=== PATIENT | male | born 1940 | race Caucasian/White ===

== ENCOUNTER 2019-04-01 23:38 | Inpatient (IN) ==
[2019-04-02 00:21] LABS: Basophils % 0.2 %; Eosinophils % 0.1 %; Hematocrit 40.5 % (37.5-50.1); Hemoglobin 13.4 g/dL (12.9-16.9); Immature Granulocytes % 0.4 % (0-4); Lymphocytes # 0.6 K/mcL (0.6-4.6); Lymphocytes % 6.6 %; Mean Corpuscular HGB Conc 33.1 g/dL (31.6-35.5); Mean Corpuscular Hemoglobin 31.3 pg (28.0-33.3); Mean Corpuscular Volume 94.6 fL (83.0-100.0); Mean Platelet Volume 9.5 fL (9.4-12.4); Monocytes # 0.7 K/mcL (0.0-1.3); Monocytes % 7.6 %; Neutrophils # 8.1 K/mcL (1.6-8.9); Platelet Count 345 K/mcL (140-400); Red Blood Count 4.28 M/mcL (4.19-5.50); Red Cell Distribution Width 13.9 % (11.5-14.5); Segmented Neutrophils % 85.1 %; White Blood Count 9.5 K/mcL (4.3-11.1)
[2019-04-02 00:35] LABS: BUN/Creatinine Ratio 16 (6-26); Blood Urea Nitrogen 14 mg/dL (8-23); Carbon Dioxide 21 mEq/L (23-29); Chloride 101 mEq/L (98-107); Potassium 3.6 mEq/L (3.5-5.1); Sodium 135 mEq/L (136-145); eGFR For African Americans > 60 (> 60)
[2019-04-02 00:36] LABS: Alanine Aminotransferase 8 Units/L (7-52); Albumin 3.3 g/dL (3.5-5.7); Alkaline Phosphatase 93 Units/L (34-104); Aspartate Amino Transferase 10 Units/L (13-39); Bilirubin,Total 0.6 mg/dL (0.3-1.0); Globulin 3.4 g/dL (2.4-3.5); Glucose 148 mg/dL (70-105); Osmolality,Calculated 283 (280-300); Total Protein 6.7 g/dL (6.4-8.9); Troponin I < 0.03 ng/mL (< 0.04); eGFR For Non-African Americans > 60 (> 60)
--- NOTE | 2019-04-02 00:40 | Emergency Department Note ---
Disposition Clinical Impression: Generalized weakness, Balanitis, Declining functional status Alzheimer's dementia Qualifiers: Alzheimer's disease onset: unspecified onset Dementia behavioral disturbance: without behavioral disturbance Qualified Code(s): G30.9 - Alzheimer's disease, unspecified; F02.80 - Dementia in other diseases classified elsewhere without behavioral disturbance Disposition: Still a Patient Referrals: Scott Grover MD [Primary Care Provider] - Time of Disposition: 00:41 General Adult HPI - General Chief complaint: ED Weakness Stated complaint: dehydration Time Seen by Provider: 04/01/19 23:43 Source: EMS Limitations: no limitations Nursing Notes Reviewed: Yes Vital Signs Reviewed: Yes - History of Present Illness Pain Scale: 0 - Related Data Home Medications Medication Instructions Recorded Confirmed Apixaban [Eliquis] 2.5 mg PO BID 08/01/18 12/21/18 Atorvastatin [Lipitor] 10 mg PO HS 08/01/18 12/21/18 Donepezil HCl [Aricept] 10 mg PO QPM 08/01/18 12/21/18 FLUoxetine HCl [Prozac] 20 mg PO DAILY 08/01/18 12/21/18 Ferrous Sulfate [Iron] 325 mg PO DAILY 08/01/18 12/21/18 Omeprazole [PriLOSEC] 40 mg PO DAILY 08/01/18 12/21/18 Oxybutynin Chloride [Ditropan Xl] 5 mg PO DAILY 08/01/18 12/21/18 Tamsulosin HCl [Flomax] 0.4 mg PO DAILY 08/01/18 12/21/18 Umeclidinium Brm/Vilanterol Tr 1 puff IH DAILY 08/01/18 12/21/18 [Anoro Ellipta 62.5-25 Mcg INH] Allergies Allergy/AdvReac Type Severity Reaction Status Date / Time No Known Allergies Allergy Verified 12/21/18 22:30 Past Medical History - Past Medical History Medical history: Reports: COPD, DVT, dementia, GERD, hyperlipidemia, other Surgical history: Reports: cholecystectomy Psychiatric history: Reports: depression - Social History Smoking Status: Current some day smoker Smokeless Tobacco Status: No Alcohol use: Reports: none Drug use: Reports: none Physical Exam - General Limitations: no limitations General appearance: alert, in no apparent distress Course Vital Signs Temperature 98.2 F 04/01/19 23:40 Pulse Rate 92 04/01/19 23:40 Respiratory Rate 20 04/01/19 23:40 Blood Pressure 101/65 04/01/19 23:40 O2 Sat by Pulse Oximetry 100 04/01/19 23:40 Temperature 98.2 F 04/01/19 23:40 Pulse Rate 92 04/01/19 23:40 Respiratory Rate 20 04/01/19 23:40 Blood Pressure 101/65 04/01/19 23:40 O2 Sat by Pulse Oximetry 100 04/01/19 23:40 Oxygen Delivery Oxygen Delivery Room Air Medical Decision Making - Lab Data Result diagrams: 04/01/19 23:59 04/01/19 23:59 Lab Results 04/01/19 04/01/19 Range/Units 23:59 23:59 WBC 9.5 (4.3-11.1) K/mcL RBC 4.28 (4.19-5.50) M/mcL Hgb 13.4 (12.9-16.9) g/dL Hct 40.5 (37.5-50.1) % MCV 94.6 (83.0-100.0) fL MCH 31.3 (28.0-33.3) pg MCHC 33.1 (31.6-35.5) g/dL RDW 13.9 (11.5-14.5) % Plt Count 345 (140-400) K/mcL MPV 9.5 (9.4-12.4) fL Immature Gran % 0.4 (0-4) % Seg Neutrophils % 85.1 % Lymphocytes % 6.6 % Monocytes % 7.6 % Eosinophils % 0.1 % Basophils % 0.2 % Neutrophils # 8.1 (1.6-8.9) K/mcL Lymphocytes # 0.6 (0.6-4.6) K/mcL Monocytes # 0.7 (0.0-1.3) K/mcL Eosinophils # 0.0 (0.0-0.6) K/mcL Basophils # 0.0 (0.0-0.2) K/mcL Sodium 135 L (136-145) mEq/L Potassium 3.6 (3.5-5.1) mEq/L Chloride 101 (98-107) mEq/L Carbon Dioxide 21 L (23-29) mEq/L BUN 14 (8-23) mg/dL Creatinine 0.90 (0.70-1.30) mg/dL Est GFR ( Amer) > 60 (> 60) Est GFR (Non-Af Amer) > 60 (> 60) BUN/Creatinine Ratio 16 (6-26) Glucose 148 H (70-105) mg/dL Calculated Osmolality 283 (280-300) Calcium 9.0 (8.6-10.3) mg/dL Total Bilirubin 0.6 (0.3-1.0) mg/dL AST 10 L (13-39) Units/L ALT 8 (7-52) Units/L Alkaline Phosphatase 93 (34-104) Units/L Troponin I < 0.03 (< 0.04) ng/mL Serum Total Protein 6.7 (6.4-8.9) g/dL Albumin 3.3 L (3.5-5.7) g/dL Globulin 3.4 (2.4-3.5) g/dL Albumin/Globulin Ratio 1.0 L (1.1-2.2) Attestation Statement - Attestation Attestation: I examined this patient and my medical decision-making was reviewed with the Resident Physician. I agree with the documented findings, disposition and treatment plan as described except to the extent set forth below. Patient to the ED with multiple complaints. He was sent in by his son who called 911. Patient's been having dizzy episodes. He is not eating. Losing w eight. Staying in bed all day. Now having difficulty ambulating. Son is concerned. He has no help at home. He does not want him to go to a residential, but he wants to get some help. Requesting admission. On exam he is awake alert and pleasantly confused. He is complaining of dizziness. Also complaining of pain in his buttock. He has erythema to bilateral buttocks. Ulceration of the scrotum and glans of his penis. He is noted to be cachectic. Plan. Patient had a functional decline home. Patient will likely need admitted to the hospital. He has significant skin breakdown on his buttock and genitals. Balanitis. CT head pending. Labs reviewed thus far. Patient will be signed out to night guard pending the rest of his workup and admission.
[2019-04-02 00:49] LABS: Bilirubin,Urine Small (Negative); Blood,Urine Small (Negative); Clarity,Urine Cloudy (Clear); Color,Urine Dark Yellow (Yellow); Glucose,Urine (UA) Normal (Normal); Ketones,Urine Negative (Negative); Leukocyte Esterase,Urine Moderate (Negative); Nitrite,Urine Positive (Negative); PH,Urine 5.5 pH Units (5.0-8.0); Protein,Urine 30 mg/dL (Neg-Trace); Specific Gravity,Urine 1.014 (1.010-1.025); Urobilinogen,Urine Normal (Normal)
[2019-04-02 00:51] LABS: Bacteria,Urine Many per hpf (None-Few); Squamous Epithelial Cell,Urine Moderate per lpf (None-Few); WBC,Urine TNTC per hpf (0-3)
--- NOTE | 2019-04-02 00:52 | Emergency Department Note ---
Disposition Clinical Impression: Generalized weakness, Balanitis, Declining functional status Alzheimer's dementia Qualifiers: Alzheimer's disease onset: unspecified onset Dementia behavioral disturbance: without behavioral disturbance Qualified Code(s): G30.9 - Alzheimer's disease, unspecified Disposition: Still a Patient Referrals: Scott Grover MD [Primary Care Provider] - Forms: ED Satisfaction Letter Time of Disposition: 01:00 General Adult HPI - General Chief complaint: ED Weakness Stated complaint: dehydration Time Seen by Provider: 04/01/19 23:43 Source: patient, EMS Mode of arrival: ambulatory Limitations: no limitations Nursing Notes Reviewed: Yes Vital Signs Reviewed: Yes - History of Present Illness HPI Narrative: Patient is a 78-year-old male with past medical history of COPD, GERD, HLD, and Alzheimer's dementia currently being taken care of by his family member at home. Patient is being brought in for generalized weakness started this morning and the family member feels that the patient becoming too difficult for him to take care of at home. The patient family member denying any focal neurological deficit. Denying any chest pain or shortness of breath. No recent illness. However states he does not have any support at home and that he is only when he is able to take care of him and he feels like it is becoming too much for them to handle is worried that his relative is not being fully taking care of at home however he does not want him to be put into a ECF. Pain Scale: 0 - Related Data Home Medications Medication Instructions Recorded Confirmed Apixaban [Eliquis] 2.5 mg PO BID 08/01/18 12/21/18 Atorvastatin [Lipitor] 10 mg PO HS 08/01/18 12/21/18 Donepezil HCl [Aricept] 10 mg PO QPM 08/01/18 12/21/18 FLUoxetine HCl [Prozac] 20 mg PO DAILY 08/01/18 12/21/18 Ferrous Sulfate [Iron] 325 mg PO DAILY 08/01/18 12/21/18 Omeprazole [PriLOSEC] 40 mg PO DAILY 08/01/18 12/21/18 Oxybutynin Chloride [Ditropan Xl] 5 mg PO DAILY 08/01/18 12/21/18 Tamsulosin HCl [Flomax] 0.4 mg PO DAILY 08/01/18 12/21/18 Umeclidinium Brm/Vilanterol Tr 1 puff IH DAILY 08/01/18 12/21/18 [Anoro Ellipta 62.5-25 Mcg INH] Allergies Allergy/AdvReac Type Severity Reaction Status Date / Time No Known Allergies Allergy Verified 12/21/18 22:30 All systems ED: reviewed and negative except as stated. Review of Systems: As Per HPI Constitutional: Reports: weakness. Denies: fever, chills Cardiovascular: Denies: chest pain, palpitations, dyspnea on exertion, edema, syncope Respiratory: Denies: cough, dyspnea, wheezes Gastrointestinal: Denies: abdominal pain, nausea, vomiting Past Medical History - Past Medical History Attestation: Yes The following information was validated with the patient. Medical history: Reports: COPD, DVT, dementia, GERD, hyperlipidemia, other Surgical history: Reports: cholecystectomy Psychiatric history: Reports: depression - Social History Smoking Status: Current some day smoker Smokeless Tobacco Status: No Alcohol use: Reports: none Drug use: Reports: none Physical Exam - General Limitations: no limitations General appearance: alert, in no apparent distress, cachectic - Head Head exam: atraumatic, normocephalic, normal inspection - Eye Eye exam: Present: normal appearance, PERRL, EOMI - ENT ENT exam: normal exam, normal oropharynx, mucous membranes moist - Neck Neck exam: Present: normal inspection, full ROM, trachea midline - Chest Chest inspection: Present: normal inspection, symmetric chest wall rise - Respiratory Respiratory exam: Present: normal lung sounds bilaterally. Absent: respiratory distress, wheezes - Cardiovascular Cardiovascular exam: Present: regular rate, normal rhythm, normal heart sounds, +S1, +S2 - Abdominal Exam Abdominal exam: Present: soft, Non-Tender. Absent: tenderness, distention, guarding, rebound, rigidity - Extremities Exam Extremities exam: Present: normal inspection, full ROM, normal capillary refill. Absent: tenderness, pedal edema - Back Exam Back exam: Present: normal inspection, full ROM. Absent: tenderness, CVA tenderness (R), CVA tenderness (L) - Neurological Exam Neurological exam: Present: alert. Absent: motor sensory deficit - Psychiatric Psychiatric exam: Present: normal affect, normal mood - Skin Skin exam: Present: warm, other (Patient has skin breakdown involving the buttock region with a superficial area of breakdown of the skin that is erythematous and red and he also has breakdown of the scrotum as well as the head of the penis to the point where the urethral opening of the penis is almost healed shut ) Course Course Narrative: Patient presents for evaluation of weakness has been getting worse appointment with a family member who is his outer diameter grinder tool is having difficult time taking care of him at home alone. On exam the patient has fecal matter that appears to be dried to his buttock's in his upper back. Family member states that the patient just took a shower at home but appears that the patient may not be capable of providing himself and adequate shower given his skin breakdown involving his scrotum and his buttock's. There is no abscess or drainage and are not concerned for Joslyn's gangrene. I am concerned for the patient's current condition and the family's ability to take care of them on their own I think that he would benefit from admission to hospital until he can establish proper home health care such as a home nurse that is able to stop alcohol to help with bathing the patient. He will undergo workup for his weakness will be admitted to the hospital he will need to be signed out to the night team due to pending labs. Vital Signs Temperature 98.2 F 04/01/19 23:40 Pulse Rate 92 04/01/19 23:40 Respiratory Rate 20 04/01/19 23:40 Blood Pressure 101/65 04/01/19 23:40 O2 Sat by Pulse Oximetry 100 04/01/19 23:40 Temperature 98.2 F 04/01/19 23:40 Pulse Rate 92 04/01/19 23:40 Respiratory Rate 20 04/01/19 23:40 Blood Pressure 101/65 04/01/19 23:40 O2 Sat by Pulse Oximetry 100 04/01/19 23:40 Oxygen Delivery Oxygen Delivery Room Air Medical Decision Making - Medical Records Medical records reviewed: Yes I reviewed the patient's medical records. - Lab Data Lab results reviewed: Yes I reviewed the patient's lab results. Result diagrams: 04/01/19 23:59 04/01/19 23:59 Lab Results 04/01/19 04/01/19 04/02/19 Range/Units 23:59 23:59 00:33 WBC 9.5 (4.3-11.1) K/mcL RBC 4.28 (4.19-5.50) M/mcL Hgb 13.4 (12.9-16.9) g/dL Hct 40.5 (37.5-50.1) % MCV 94.6 (83.0-100.0) fL MCH 31.3 (28.0-33.3) pg MCHC 33.1 (31.6-35.5) g/dL RDW 13.9 (11.5-14.5) % Plt Count 345 (140-400) K/mcL MPV 9.5 (9.4-12.4) fL Immature Gran % 0.4 (0-4) % Seg Neutrophils % 85.1 % Lymphocytes % 6.6 % Monocytes % 7.6 % Eosinophils % 0.1 % Basophils % 0.2 % Neutrophils # 8.1 (1.6-8.9) K/mcL Lymphocytes # 0.6 (0.6-4.6) K/mcL Monocytes # 0.7 (0.0-1.3) K/mcL Eosinophils # 0.0 (0.0-0.6) K/mcL Basophils # 0.0 (0.0-0.2) K/mcL Sodium 135 L (136-145) mEq/L Potassium 3.6 (3.5-5.1) mEq/L Chloride 101 (98-107) mEq/L Carbon Dioxide 21 L (23-29) mEq/L BUN 14 (8-23) mg/dL Creatinine 0.90 (0.70-1.30) mg/dL Est GFR ( Amer) > 60 (> 60) Est GFR (Non-Af Amer) > 60 (> 60) BUN/Creatinine Ratio 16 (6-26) Glucose 148 H (70-105) mg/dL Calculated Osmolality 283 (280-300) Calcium 9.0 (8.6-10.3) mg/dL Total Bilirubin 0.6 (0.3-1.0) mg/dL AST 10 L (13-39) Units/L ALT 8 (7-52) Units/L Alkaline Phosphatase 93 (34-104) Units/L Troponin I < 0.03 (< 0.04) ng/mL Serum Total Protein 6.7 (6.4-8.9) g/dL Albumin 3.3 L (3.5-5.7) g/dL Globulin 3.4 (2.4-3.5) g/dL Albumin/Globulin Ratio 1.0 L (1.1-2.2) Urine Color Dark Yellow (Yellow) Urine Clarity Cloudy A (Clear) Urine pH 5.5 (5.0-8.0) pH Units Ur Specific [place] 1.014 (1.010-1.025) Urine Protein 30 H (Neg-Trace) mg/dL Urine Glucose (UA) Normal (Normal) mg/dL Urine Ketones Negative (Negative) mg/dL Urine Blood Small H (Negative) Urine Nitrite Positive A (Negative) Urine Bilirubin Small H (Negative) Urine Urobilinogen Normal (Normal) mg/dL Ur Leukocyte Esterase Moderate H (Negative) - EKG Data EKG #1 EKG attestation: Yes I reviewed and interpreted this EKG. EKG results narrative: EKG done at 23:49 so sinus rhythm at a rate of 98 bpm. Normal axis. Intervals within normal limits. No signs of ST elevation, ST depression or Q waves present. Patient does have abnormal. Nichole wave appearing finding in his inferior leads however this is unchanged from EKG in December 2018. He does have a widened QRS as well which is a right bundle branch block which appears to be old. [place] - Ol[place]a Situation: Demographics, MOA Background: Presenting Complaint, Relevant PMH, Meds, & Allergies Assessment: Vital Signs, Course and respsone to treatment, Exam Concerns, Patient/Family Expectation, Pertinant Lab Results, Outstanding Labs Recommendation: Barrier(s) to disposition, Recommendation based on pending studies, treatments, or consults SNormaBJanes Report Given to: katalina Bhagat Repor Time: 00:57
[2019-04-02] MEDS ORDERED: Sulfamethoxazole/Trimeth DS 1 EACH TABLET PO ONE (00:56)
[2019-04-02 01:00] LABS: Hyaline Casts,Urine Moderate per lpf (None-Few); Mucus,Urine Moderate (Few)
[2019-04-02] MEDS ORDERED: Acetaminophen 325 MG TABLET PO PRN (04:06)
[2019-04-02] MEDS ORDERED: Naloxone 0.4 MG/ML INJ IVP PRN (04:06)
[2019-04-02] MEDS ORDERED: Ondansetron 4 MG/2 ML VIAL IVP PRN (04:06)
[2019-04-02] MEDS ORDERED: 0.9 % Sodium Chloride w KCl 20 MEQ/1,000 ML MLS IVC SCH (04:15)
--- NOTE | 2019-04-02 04:19 | Internal Med History&Physical ---
Date of Encounter: 04/02/19 Time of Encounter: 04:14 Internal Medicine - H&P: HPI Chief complaint: FTT Admitted From: Emergency Dept Plans for Post Hospital Care: Home History of present illness: Mr. Livingston is a 78 year old male who presents to the ER tonight per EMS by the request of his son. Patient has not been able to care for himself and has not been able to attend to ADLs, feed himself, clean himself, and/or bathe himself. He has been losing weight and getting dehydrated. He was therefore sent to the ER. Workup in ER revealed patient to have significant UTI, malnutrition, dehydration, and redness and excoriation to his perineum. Patient reportedly suffers from Alzheimer's dementia and has been steadily declining. He was therefore admitted to hospitalist service for ongoing treatment and workup and further assessment of his capabilities. Upon my assessment of the patient, patient is pleasantly confused and offers no history. There are no family members present at the bedside. All history is obtained from limited old records and ER records. Furthermore, I obtained history from patient's primary nurse in the ER. Reportedly, patient was living with his until his several months ago. Patient then moved in with his son recently who, unfortunately, is no longer able to care for the patient. No further history is available at this time. Past Med Surg Social Fam HX - Past Medical History Source: old records reviewed, nursing notes reviewed, other (ER records) Medical history: COPD, DVT, dementia, GERD, hyperlipidemia, other Psychiatric history: depression - Past Surgical History Surgical History: cholecystectomy Additional surgical history: Gall bladder surgery - Social History Smoking Status: Current some day smoker Smokeless Tobacco Status: No Alcohol use: none Drug use: none Current living situation: Home, With Family Activity Level: Mostly sedentary - Family History Father Living Status: Mother Living Status: Hx Family Cardiac Disorders: Yes Brother Family Member Ethnicity: Non- Living Status: Hx Family Cancer: Yes (Type unknown) Sister Family Member Ethnicity: Non- Living Status: Hx Family Cancer: Yes (Type unknown) Internal Medicine - H&P: Meds Apixaban [Eliquis] 2.5 mg PO BID 08/01/18 [History] Atorvastatin [Lipitor] 10 mg PO HS 08/01/18 [History] Donepezil HCl [Aricept] 10 mg PO QPM 08/01/18 [History] FLUoxetine HCl [Prozac] 20 mg PO DAILY 08/01/18 [History] Ferrous Sulfate [Iron] 325 mg PO DAILY 08/01/18 [History] Omeprazole [PriLOSEC] 40 mg PO DAILY 08/01/18 [History] Oxybutynin Chloride [Ditropan Xl] 5 mg PO DAILY 08/01/18 [History] Tamsulosin HCl [Flomax] 0.4 mg PO DAILY 08/01/18 [History] Umeclidinium Brm/Vilanterol Tr [Anoro Ellipta 62.5-25 Mcg INH] 1 puff IH DAILY 08/01/18 [History] Allergy/AdvReac Type Severity Reaction Status Date / Time No Known Allergies Allergy Verified 12/21/18 22:30 ROS unobtainable: due to mental status - Constitutional Vitals: Temp Pulse Resp BP Pulse Ox 98.2 F 87 18 107/69 100 04/01/19 23:40 04/02/19 01:11 04/02/19 01:11 04/02/19 01:11 04/02/19 01:11 General appearance: Present: cachectic, A&O X 0, cooperative, pleasant. Absent: answers questions appropriately Exam: appears dry, cachectic, weak, frail, confused - Head Head exam: Present: atraumatic, normal inspection - Eye Eye exam: Present: EOMI, PERRL. Absent: scleral icterus Pupils: Present: normal accommodation - ENT ENT exam: Present: mucous membranes dry, normal exam, normal oropharynx - Neck Neck exam general surgery: Present: full ROM, supple, trachea midline. Absent: lymphadenopathy, tenderness, nuchal rigidity, thyromegaly - Respiratory Respiratory exam: Present: prolonged expiratory phase, wheezes (rare, scattered). Absent: accessory muscle use, chest wall tenderness, rales, respiratory distress, rhonchi, tachypnea - Cardiovascular Cardiovascular exam: Present: distant heart sounds, RRR, +S1, +S2. Absent: diastolic murmur, systolic murmur - GI/Abdominal GI/Abdominal exam: Present: normal bowel sounds, soft. Absent: guarding, hepatomegaly, mass, rebound, splenomegaly, tenderness Additional comments: soft, scaphoid - External exam: Present: erythema Additional comments: red, excoriated fungal type rash along perineum - Extremities Exam Extremities exam: Present: full ROM, normal capillary refill, warm, radial pulses palpable and symmetrical. Absent: calf tenderness, joint swelling, pedal edema, tenderness Additional comments: muscle atrophy/wasting - Back Exam Back exam: Absent: CVA tenderness (L), CVA tenderness (R) - Neurological Exam Neurological exam: Present: alert, CN II-XII intact, no focal deficits, strengths equal and symetr throughout. Absent: oriented X3 - Psychiatric Psychiatric exam: Present: flat affect - Skin Skin exam: Present: dry, intact, warm Internal Med - H&P Results - Labs CBC & Chem 7: 04/01/19 23:59 04/01/19 23:59 Labs: Short CBC 04/01/19 Range/Units 23:59 WBC 9.5 (4.3-11.1) K/mcL Hgb 13.4 (12.9-16.9) g/dL Hct 40.5 (37.5-50.1) % Plt Count 345 (140-400) K/mcL Neutrophils # 8.1 (1.6-8.9) K/mcL BMP 04/01/19 23:59 Sodium 135 L Potassium 3.6 Chloride 101 Carbon Dioxide 21 L BUN 14 Creatinine 0.90 Glucose 148 H Calcium 9.0 Cardiac Enzymes 04/01/19 Range/Units 23:59 Troponin I < 0.03 (< 0.04) ng/mL Liver Function 04/01/19 Range/Units 23:59 Total Bilirubin 0.6 (0.3-1.0) mg/dL AST 10 L (13-39) Units/L ALT 8 (7-52) Units/L Alkaline Phosphatase 93 (34-104) Units/L Albumin 3.3 L (3.5-5.7) g/dL Urine 04/02/19 Range/Units 00:33 Urine Color Dark Yellow (Yellow) Urine Clarity Cloudy A (Clear) Urine pH 5.5 (5.0-8.0) pH Units Ur Specific [place] 1.014 (1.010-1.025) Urine Protein 30 H (Neg-Trace) mg/dL Urine Glucose (UA) Normal (Normal) mg/dL - Impressions ITS Impressions Chest X-Ray 04/02/19 00:01 IMPRESSION: No evidence of acute cardiopulmonary disease. Hyperinflation again noted suggestive of COPD. D/ / Best Enriquez MD / Best Enriquez MD Interpreting Provider: Best Enriquez MD Head CT 04/02/19 00:13 IMPRESSION: No CT evidence of an acute infarct. D/ / Manuel Orantes MD / Manuel Orantes MD Interpreting Provider: Manuel Orantes MD - Diagnostic Studies Chest x-ray Status: image reviewed by me (negative) - Assessment and Plan (1) UTI (urinary tract infection) Current Visit: Yes Status: Acute Assessment and plan: 1. Urine culture obtained in ER. 2. Will treat with IVF and Rocephin. 3. Follow cultures and adjust antibiotics accordingly. Qualifiers: Urinary tract infection type: acute cystitis Hematuria presence: with hematuria Qualified Code(s): N30.01 - Acute cystitis with hematuria (2) Alzheimer's dementia Current Visit: Yes Status: Chronic Assessment and plan: 1. Continue Aricept. 2. Consult environmental services specialist for D/C planning. 3. Patient pleasantly confused -- unsure if this is baseline. Need family presence to assist in further evaluation/comparison. Qualifiers: Alzheimer's disease onset: unspecified onset Dementia behavioral disturbance: without behavioral disturbance Qualified Code(s): G30.9 - Alzheimer's disease, unspecified; F02.80 - Dementia in other diseases classified elsewhere without behavioral disturbance (3) Failure to thrive in adult Current Visit: Yes Status: Acute Assessment and plan: 1. IVF hydration. 2. Will need PT/OT evaluations, nutrition consult, social service consult, possibly psychiatry consult. (4) DVT prophylaxis Current Visit: Yes Status: Acute Assessment and plan: 1. Continue home dose of Eliquis.
[2019-04-02] MEDS: Ketoconazole 2% CRM 15 GM TUBE TP SCH ×2 (05:31→20:20)
--- NOTE | 2019-04-02 07:23 | Event Note ---
Date of Encounter: 04/02/19 Time of Encounter: 09:50 Mr Livingston is a 78 yo m pmhx COPD, Dementia, DVT on AC, Depression whom lives with his son and presented with malnutrition, inability to complete ADLs and possible dehydration. He is being observed for UTI and failure to thrive awake, no family present. He is pleasantly confused but oriented to person and place. He denies any bladder pain, back pain, dysuria, fevers or chills. He ate breakfast without issue but says it was cold. Re oriented him to bladder infection and treatment plan. Discussed with RN whom will update family should they visit today. gen- alert, awake,appears stated age eyes- pupils equal round cv- reg rate and rhythm, normal s1,s2, no le edema lungs- ctabl, no wheezing, rhonchi or crackles, normal resp effort on room air abd- soft, non tender, non distended, + bs neuro- AAOx person place, not date, year or siltation, CN are grossly intact, he moves all ext without deficit in strength Suspected UTI -cont rocephin, Ucx pending Dementia- cont donepezil Failure to Thrive- nutrition consult, pt/ot/sw assistance Presumed BPH- cont edmundo eflomax Depression- cont home fluoxetine DVT- cont home Eliquis COPD,s table- cont home inhaler vte ppx eliquis
[2019-04-02] MEDS ORDERED: 0.9 % Sodium Chloride 1,000 ML IVC SCH (07:30)
[2019-04-02] MEDS ORDERED: Fluconazole 100 MG TABLET PO SCH (09:00)
[2019-04-02] MEDS: cefTRIAXone 1,000 MG in Water for inj. (sterile) 10 ML IVP SCH (09:03)
[2019-04-02] MEDS: Apixaban 2.5 MG TABLET PO SCH ×2 (09:04→20:03)
[2019-04-02] MEDS: Gabapentin 100 MG CAPSULE PO SCH (20:03)
[2019-04-02] MEDS ORDERED: Gabapentin 100 MG CAPSULE PO SCH (21:00)
[2019-04-03 03:26] LABS: BUN/Creatinine Ratio 14 (6-26); Blood Urea Nitrogen 12 mg/dL (8-23); Calcium 8.5 mg/dL (8.6-10.3); Carbon Dioxide 24 mEq/L (23-29); Chloride 106 mEq/L (98-107); Glucose 98 mg/dL (70-105); Osmolality,Calculated 284 (280-300); Potassium 3.9 mEq/L (3.5-5.1); Sodium 137 mEq/L (136-145); eGFR For African Americans > 60 (> 60); eGFR For Non-African Americans > 60 (> 60)
--- NOTE | 2019-04-03 07:18 | Internal Med Progress Note ---
Hospitalist Progress Note - Encounter Date of Encounter: 04/03/19 Time of Encounter: 08:00 - Subjective Interval History: awake, eating breakfast, no family present, pleasantly confused. He denies pain, abd pain, dysuria, fever or chills. he has no concerns. - Exam Vitals: Temp Pulse Resp BP Pulse Ox 98.0 F 72 16 127/68 97 04/03/19 07:00 04/03/19 07:00 04/03/19 07:00 04/03/19 07:00 04/03/19 07:00 Exam: gen- alert, awake,appears stated age cv- reg rate and rhythm, normal s1,s2, no le edema lungs- ctabl, normal resp effort on room air abd- soft, non tender, non distended, + bs neuro- AAOx person place, not date, year or siltation, CN are grossly intact, he moves all ext without deficit - Assessment and Plan (1) UTI (urinary tract infection) Current Visit: Yes Status: Acute (2) Failure to thrive in adult Current Visit: Yes Status: Acute (3) Alzheimer's dementia Current Visit: Yes Status: Chronic - Summary of Assessment and Plan Summary of Assessment and Plan: Mr Livingston is a 78 yo m pmhx COPD, Dementia, DVT on AC, Depression whom lives with his son and presented with malnutrition, inability to complete ADLs and possible dehydration. He is being observed for UTI and failure to thrive Suspected UTI -cont rocephin, Ucx pending Dementia- cont donepezil and namenda Failure to Thrive- nutrition consult, pt/ot/sw assistance Presumed BPH- cont home flomax Depression- cont home fluoxetine DVT- cont home Eliquis COPD,stable- cont home inhaler HLD- cont hoome statin vte ppx eliquis Internal Medicine: Result - Labs CBC & Chem 7: 04/01/19 23:59 04/03/19 02:32 Labs: BMP 04/03/19 02:32 Sodium 137 Potassium 3.9 Chloride 106 Carbon Dioxide 24 BUN 12 Creatinine 0.88 Glucose 98 Calcium 8.5 L Consult Discharge Plan - Plan Referrals: Scott Grover MD [Primary Care Provider] - (1) UTI (urinary tract infection) Qualifiers: Urinary tract infection type: acute cystitis Hematuria presence: with hematuria Qualified Code(s): N30.01 - Acute cystitis with hematuria (3) Alzheimer's dementia Qualifiers: Alzheimer's disease onset: unspecified onset Dementia behavioral disturbance: without behavioral disturbance Qualified Code(s): G30.9 - Alzheimer's disease, unspecified; F02.80 - Dementia in other diseases classified elsewhere without behavioral disturbance
[2019-04-03] MEDS: FLUoxetine 20 MG CAPSULE PO SCH (08:33)
[2019-04-03] MEDS: Gabapentin 100 MG CAPSULE PO SCH ×2 (08:34→21:33)
[2019-04-03] MEDS: Magnesium Oxide 400 MG TABLET PO SCH (08:34)
[2019-04-03] MEDS: cefTRIAXone 1,000 MG in Water for inj. (sterile) 10 ML IVP SCH (08:34)
[2019-04-03] MEDS: Apixaban 2.5 MG TABLET PO SCH ×2 (08:34→21:32)
[2019-04-03] MEDS: Ketoconazole 2% CRM 15 GM TUBE TP SCH ×2 (09:00→21:35)
--- NOTE | 2019-04-03 16:01 | Electrocardiograph Report ---
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
--- NOTE | 2019-04-04 07:13 | Internal Med Progress Note ---
Hospitalist Progress Note - Encounter Date of Encounter: 04/04/19 Time of Encounter: 08:15 - Subjective Interval History: resting in bed, rn at bedside, he denies pain, bladder pain, f/c, n/v. pleasantly confused, tired today - Exam Vitals: Temp Pulse Resp BP Pulse Ox 98.3 F 64 16 145/61 97 04/04/19 05:15 04/04/19 05:15 04/04/19 05:15 04/04/19 05:15 04/04/19 05:15 Exam: gen- alert, awake,appears stated age cv- reg rate and rhythm, normal s1,s2, lungs- ctabl, normal resp effort on room air abd- soft, non tender, non distended, + bs neuro- AAOx person place, not date, year or siltation, CN are grossly intact, he moves all ext without deficit - Assessment and Plan (1) UTI (urinary tract infection) Current Visit: Yes Status: Acute (2) Failure to thrive in adult Current Visit: Yes Status: Acute (3) Alzheimer's dementia Current Visit: Yes Status: Chronic - Summary of Assessment and Plan Summary of Assessment and Plan: Mr Livingston is a 78 yo m pmhx COPD, Dementia, DVT on AC, Depression whom lives with his son and presented with malnutrition, inability to complete ADLs and possible dehydration. He is being observed for UTI and failure to thrive E Coli + Proteus UTI -cont rocephin as both are sensitive to this medication, day 3 abx treatment today -suspect will finish abx course while inpt awaiting SNF placement Dementia- cont donepezil and namenda Failure to Thrive- nutrition consult, pt/ot/sw assistance Presumed BPH- cont home flomax Depression- cont home fluoxetine DVT- cont home Eliquis COPD,stable- cont home inhaler HLD- cont hoome statin vte ppx eliquis dispo- will be to snf when arranged Internal Medicine: Result - Labs CBC & Chem 7: 04/01/19 23:59 04/03/19 02:32 Consult Discharge Plan - Plan Referrals: Scott Grover MD [Primary Care Provider] - (1) UTI (urinary tract infection) Qualifiers: Urinary tract infection type: acute cystitis Hematuria presence: without hematuria Qualified Code(s): N30.00 - Acute cystitis without hematuria (3) Alzheimer's dementia Qualifiers: Alzheimer's disease onset: unspecified onset Dementia behavioral disturbance: without behavioral disturbance Qualified Code(s): G30.9 - Alzheimer's disease, unspecified; F02.80 - Dementia in other diseases classified elsewhere without behavioral disturbance
[2019-04-04] MEDS: FLUoxetine 20 MG CAPSULE PO SCH (08:26)
[2019-04-04] MEDS: Magnesium Oxide 400 MG TABLET PO SCH (08:26)
[2019-04-04] MEDS: Apixaban 2.5 MG TABLET PO SCH ×2 (08:26→19:53)
[2019-04-04] MEDS: cefTRIAXone 1,000 MG in Water for inj. (sterile) 10 ML IVP SCH (08:27)
[2019-04-04] MEDS: Gabapentin 100 MG CAPSULE PO SCH ×2 (08:27→19:53)
[2019-04-04] MEDS: Ketoconazole 2% CRM 15 GM TUBE TP SCH ×2 (08:37→19:54)
[2019-04-05] MEDS: Apixaban 2.5 MG TABLET PO SCH ×2 (08:48→20:34)
[2019-04-05] MEDS: Magnesium Oxide 400 MG TABLET PO SCH (08:48)
[2019-04-05] MEDS: Gabapentin 100 MG CAPSULE PO SCH ×2 (08:49→20:33)
[2019-04-05] MEDS: FLUoxetine 20 MG CAPSULE PO SCH (08:49)
[2019-04-05] MEDS: cefTRIAXone 1,000 MG in Water for inj. (sterile) 10 ML IVP SCH (08:50)
[2019-04-05] MEDS: Ketoconazole 2% CRM 15 GM TUBE TP SCH ×2 (09:18→20:38)
--- NOTE | 2019-04-05 18:42 | Internal Med Progress Note ---
Hospitalist Progress Note - Encounter Date of Encounter: 04/05/19 Time of Encounter: 08:00 - Subjective Interval History: Patient was seen today at bedtime. No major events overnight. He denied any abdominal pain, nausea or vomiting. - Exam Vitals: Temp Pulse Resp BP Pulse Ox 97.7 F 73 19 165/80 99 04/05/19 11:29 04/05/19 15:49 04/05/19 15:49 04/05/19 15:49 04/05/19 15:49 Exam: Head: Atraumatic, normal inspection, normocephalic. Eye: EOMI, PERRLA, no scleral icterus noted. ENT: Mucous membranes moist. No odontogenic infection noted. Large amount of oral secretions noted. Neck: Normal inspection, no meningismus. Respiratory: Crackles noted to the right base. No respiratory distress, rhonchi, or wheezes noted. Cardiovascular: Regular rate and irregular rhythm, S1 and S2 audible. No murmurs, rubs, or gallops. GI: Soft, nondistended, normal bowel sounds. Extremities:No joint swelling, pedal edema, or tenderness noted. Neurological: Alert, oriented 3, no focal deficits. Psychiatric: normal affect, normal mood. Skin: Dry, intact, warm. Normal color. No rashes Gen: Alert but not oriented 3. - Assessment and Plan (1) UTI (urinary tract infection) Current Visit: Yes Status: Acute (2) Failure to thrive in adult Current Visit: Yes Status: Acute (3) Alzheimer's dementia Current Visit: Yes Status: Chronic - Summary of Assessment and Plan Summary of Assessment and Plan: Mr Livingston is a 78 yo m pmhx COPD, Dementia, DVT on AC, Depression whom lives with his son and presented with malnutrition, inability to complete ADLs and possible dehydration. He is being observed for UTI and failure to thrive E Coli + Proteus UTI -cont rocephin day 4/. -Patient is afebrile, HDLs. Dementia- cont donepezil and namenda Failure to Thrive- nutrition consult, pt/ot/sw assistance Presumed BPH- cont home flomax Depression- cont home fluoxetine DVT- cont home Eliquis COPD,stable- cont home inhaler HLD- cont hoome statin vte ppx eliquis dispo- arrange for SNF. Discussed with social worker clinical and special education case manager. - Time Spent with Patient Total time spent is greater than 50% in coordination of care (as documented) at patient's floor/unit and/or counseling patient: Plan of Care Discussed with: social work Internal Medicine: Result - Labs CBC & Chem 7: 04/01/19 23:59 04/03/19 02:32 Consult Discharge Plan - Plan Referrals: Scott Grover MD [Primary Care Provider] - (1) UTI (urinary tract infection) Qualifiers: Urinary tract infection type: acute cystitis Hematuria presence: without hematuria Qualified Code(s): N30.00 - Acute cystitis without hematuria (3) Alzheimer's dementia Qualifiers: Alzheimer's disease onset: unspecified onset Dementia behavioral disturbance: without behavioral disturbance Qualified Code(s): G30.9 - Alzheimer's disease, unspecified; F02.80 - Dementia in other diseases classified elsewhere without behavioral disturbance
[2019-04-06] MEDS: Apixaban 2.5 MG TABLET PO SCH (08:35)
[2019-04-06] MEDS: Gabapentin 100 MG CAPSULE PO SCH (08:35)
[2019-04-06] MEDS: FLUoxetine 20 MG CAPSULE PO SCH (08:35)
[2019-04-06] MEDS: Magnesium Oxide 400 MG TABLET PO SCH (08:35)
[2019-04-06] MEDS: cefTRIAXone 1,000 MG in Water for inj. (sterile) 10 ML IVP SCH (08:35)
[2019-04-06] MEDS: Ketoconazole 2% CRM 15 GM TUBE TP SCH (10:22)
[2019-04-06 10:58] VITALS: BP 120/66
--- NOTE | 2019-04-06 11:46 | Discharge Summary ---
- NOTES TO OUTPATIENT PROVIDER Notes to Outpatient Provider: Finish 5 days of Bactrim Date of Encounter: 04/06/19 Time of Encounter: 10:30 - Discharge Diagnosis (1) UTI (urinary tract infection) Priority: Primary Status: Acute Qualifiers: Urinary tract infection type: acute cystitis Hematuria presence: without hematuria Qualified Code(s): N30.00 - Acute cystitis without hematuria (2) Failure to thrive in adult Priority: Secondary Status: Acute (3) Alzheimer's dementia Priority: Secondary Status: Chronic Qualifiers: Alzheimer's disease onset: unspecified onset Dementia behavioral disturbance: without behavioral disturbance Qualified Code(s): G30.9 - Alzheimer's disease, unspecified; F02.80 - Dementia in other diseases classified elsewhere without behavioral disturbance Hospital course: Mr Livingston is a 78 yo m pmhx COPD, Dementia, DVT on AC, Depression whom lives with his son and presented with malnutrition, inability to complete ADLs and possible dehydration. He was found to have UTI caused by Escherichia coli and Proteus. Patient was placed on Rocephin for 5 days. He remained afebrile and his leukocytosis improved. workers compensation defense attorney and case management worked on placement and patient was accepted at [facility]. Today, patient is hemodynamically stable. Asymptomatic and he will be discharged to [facility] in stable condition. He will continue 5 days of oral Bactrim to complete a total 10 days of therapy. Discharge discussed with: social work - Time Spent with Patient Total time spent providing and/or coordinating discharge services:33minutes - Discharge Medications Prescriptions: New Magnesium Oxide [Mag-Ox] 400 mg PO DAILY tablet Continued Apixaban [Eliquis] 2.5 mg PO BID Donepezil HCl [Aricept] 10 mg PO QPM Ferrous Sulfate [Iron] 325 mg PO DAILY FLUoxetine HCl [Prozac] 20 mg PO DAILY Omeprazole [PriLOSEC] 40 mg PO BID Oxybutynin Chloride [Ditropan XL] 5 mg PO DAILY Tamsulosin HCl [Flomax] 0.4 mg PO DAILY Gabapentin [Neurontin] 100 mg PO QAM Dicyclomine [Bentyl] 10 mg PO QID Memantine [Namenda] 5 mg PO DAILY Atorvastatin [Lipitor] 40 mg PO HS Fluticasone/Umeclidin/Vilanter [Trelegy Ellipta 100-62.5-25] 1 puff PO DAILY Discontinued Gabapentin [Neurontin] 100 mg PO HS Magnesium Oxide [Magnesium] 400 mg PO DAILY Home Medications: Apixaban [Eliquis] 2.5 mg PO BID 08/01/18 [History] Donepezil HCl [Aricept] 10 mg PO QPM 08/01/18 [History] FLUoxetine HCl [Prozac] 20 mg PO DAILY 08/01/18 [History] Ferrous Sulfate [Iron] 325 mg PO DAILY 08/01/18 [History] Omeprazole [PriLOSEC] 40 mg PO BID 08/01/18 [History] Oxybutynin Chloride [Ditropan XL] 5 mg PO DAILY 08/01/18 [History] Tamsulosin HCl [Flomax] 0.4 mg PO DAILY 08/01/18 [History] Dicyclomine [Bentyl] 10 mg PO QID 04/02/19 [History] Gabapentin [Neurontin] 100 mg PO QAM 04/02/19 [History] Memantine [Namenda] 5 mg PO DAILY 04/02/19 [History] Atorvastatin [Lipitor] 40 mg PO HS 04/03/19 [History] Fluticasone/Umeclidin/Vilanter [Trelegy Ellipta 100-62.5-25] 1 puff PO DAILY 04/03/19 [History] Magnesium Oxide [Mag-Ox] 400 mg PO DAILY tablet 04/06/19 [Rx] Sulfamethoxazole/Trimeth DS [Bactrim DS] 1 each PO BID #10 tablet 04/06/19 [Rx] Allergies/Adverse Reactions: Allergy/AdvReac Type Severity Reaction Status Date / Time No Known Allergies Allergy Verified 04/03/19 14:38 Date of admission: 04/03/19 15:38 Primary care physician: Scott Grover MD Consults: 04/02/19 07:21 Consult to Physical Therapy [CONS] Routine Comment: Evaluate, develop and implement POC Reason for Consult: failure to thrive Does patient have active BEDREST order?: No Is patient medically & hemodynamically stable?: Yes Patient assessed for mobility or mobilized this visit?: Yes Consult to Development Representative [CONS] Routine Reason for SW Consult: failure to thrive, dispo planning - Constitutional Vitals: Temp Pulse Resp BP Pulse Ox 97.9 F 79 18 120/66 97 04/06/19 10:55 04/06/19 10:55 04/06/19 10:55 04/06/19 10:55 04/06/19 10:55 General appearance: Present: cachectic, A&O X 0, cooperative, pleasant. Absent: answers questions appropriately Exam: Head: Atraumatic, normal inspection, normocephalic. Eye: EOMI, PERRLA, no scleral icterus noted. ENT: Mucous membranes moist. No odontogenic infection noted. Large amount of oral secretions noted. Neck: Normal inspection, no meningismus. Respiratory: Crackles noted to the right base. No respiratory distress, rhonchi, or wheezes noted. Cardiovascular: Regular rate and irregular rhythm, S1 and S2 audible. No murmurs, rubs, or gallops. GI: Soft, nondistended, normal bowel sounds. Extremities:No joint swelling, pedal edema, or tenderness noted. Neurological: Alert, oriented 3, no focal deficits. Psychiatric: normal affect, normal mood. Skin: Dry, intact, warm. Normal color. No rashes Gen: Alert but not oriented 3. - Patient Status Disposition: Transfer SNF Condition: Fair Functional capacity at discharge: independent ambulation Overall status at discharge: patient is back to baseline - Discharge Instructions Instructions: Weakness (GEN) Follow Up With: Scott Grover MD [Primary Care Provider] - - Diet and Activity Activity: as per physical therapy Diet: advance to your usual diet
--- NOTE | 2019-04-06 11:59 | Physician Discharge Referral ---
ExtendedCare Referral Info Transfer To: [place] Provider in Charge after Transfer: PCP Institutional Level of Care: Skilled - Diagnosis (1) UTI (urinary tract infection) Priority: Primary Status: Acute (2) Failure to thrive in adult Priority: Secondary Status: Acute (3) Alzheimer's dementia Priority: Secondary Status: Chronic Prognosis: Fair - Transfer Medications Prescriptions: Sulfamethoxazole/Trimeth DS [Bactrim DS] 1 each PO BID #10 tablet Home Medications: Apixaban [Eliquis] 2.5 mg PO BID 08/01/18 [History] Donepezil HCl [Aricept] 10 mg PO QPM 08/01/18 [History] FLUoxetine HCl [Prozac] 20 mg PO DAILY 08/01/18 [History] Ferrous Sulfate [Iron] 325 mg PO DAILY 08/01/18 [History] Omeprazole [PriLOSEC] 40 mg PO BID 08/01/18 [History] Oxybutynin Chloride [Ditropan XL] 5 mg PO DAILY 08/01/18 [History] Tamsulosin HCl [Flomax] 0.4 mg PO DAILY 08/01/18 [History] Dicyclomine [Bentyl] 10 mg PO QID 04/02/19 [History] Gabapentin [Neurontin] 100 mg PO QAM 04/02/19 [History] Memantine [Namenda] 5 mg PO DAILY 04/02/19 [History] Atorvastatin [Lipitor] 40 mg PO HS 04/03/19 [History] Fluticasone/Umeclidin/Vilanter [Trelegy Ellipta 100-62.5-25] 1 puff PO DAILY 04/03/19 [History] Magnesium Oxide [Mag-Ox] 400 mg PO DAILY tablet 04/06/19 [Rx] Sulfamethoxazole/Trimeth DS [Bactrim DS] 1 each PO BID #10 tablet 04/06/19 [Rx] Allergies/Adverse Reactions: Allergy/AdvReac Type Severity Reaction Status Date / Time No Known Allergies Allergy Verified 04/03/19 14:38 - Respiratory Orders Smoking Cessation: Smoking cessation has been advised. For more information, call the [place] Tobacco Quit Line at 0-318-UHAB-NOW. - Mobility Orders Ambulate - Rehabiliation Orders Rehab Potential: Good - Treatments Skin tear care topically daily PRN per policy - Diet Orders Regular CERTIFICATION: I certify that the transfer of the above named patient to an Extended Care Facility is necessary for the continuing treatment of the diagnosis listed. The above information is true and accurate reflection of patient's current condition. Confidential - Redisclosure prohibited without a patient's written consent.
== END 2019-04-06 15:07 | DRG 690 ==
LOC: EMEROOARM 23:38 → 2ANU 23:38 → SUATTDRO 04-02 03:26 → 2ANU 04-02 05:02 → SUATTDRO 04-03 15:38
PROVIDERS: ADMIT Family Medicine; ATTEND Internal Medicine